=== PATIENT | male | born 1950 | race Asian ===

== ENCOUNTER 2017-06-19 06:47 | Day surgery (SDC) | payer BC ==
[2017-06-18 14:30] VITALS: BMI 39.9
[2017-06-19 09:17] VITALS: TEMP 97.7
[2017-06-19 10:02] VITALS: BP 107/77; PULSE 74
--- NOTE | 2017-06-22 16:43 | PATH ---
Surgical Pathology Report Patient Name: JACK ORTIZ [facility]. Rec. #: [id number] /Age/Gender: 1950 (Age: 67) / M Account: [id number] Location: U-ENDOSCOPY Taken: 06/19/2017 Received: 06/19/2017 Reported: 06/22/2017 Physicians: Linda Doe M.D. Specimen(s) Received A: BX DESCENDING COLON POLYP B: BX PROXIMAL TRANSVERSE COLON POLYP C: BX DISTAL TRANSVERSE COLON POLYP Clinical History Colon cancer screening Final Diagnosis A. COLON, DESCENDING, POLYP, BIOPSY: FRAGMENTS OF HYPERPLASTIC POLYP. B. COLON, PROXIMAL TRANSVERSE, POLYPS, BIOPSY: TUBULAR ADENOMA. ADDITIONAL POLYPOID FRAGMENTS OF COLONIC MUCOSA WITH REACTIVE LYMPHOID AGGREGATES AND SURFACE HYPERPLASTIC CHANGE. C. COLON, DISTAL TRANSVERSE, POLYP, BIOPSY: FRAGMENTS OF HYPERPLASTIC TYPE POLYP WITH FOCAL FEATURES OF SESSILE SERRATED ADENOMA. Electronically Signed Priyank Abreu M.D. Gross Description A. Received in formalin, labeled "biopsy descending colon polyp" are 3 steve, irregular portions of soft tissue ranging from 0.5-0.6 cm in greatest dimension. The specimens are submitted in toto in one cassette. B. Received in formalin, labeled "biopsy proximal transverse colon polyps" are 4 steve, irregular portions of soft tissue ranging from 0.1-1.0 cm in greatest dimension. The specimens are submitted in toto in one cassette. C. Received in formalin, labeled "biopsy distal transverse colon polyp" are 5 steve, irregular portions of soft tissue ranging from 0.1-0.6 cm in greatest dimension. The specimens are submitted in toto in one cassette. 06/19/201706/19/2017
== END 2017-06-19 10:07 | disposition home or self-care (01) ==
LOC: JASU-ENDO 06:47
PROVIDERS: ATTEND Internal Medicine Gastroenterology
PROC: 0DBL8ZX Excision of Transverse Colon, Via Natural or Artificial Opening Endoscopic, Diagnostic (ICD-10-PCS; 2017-06-19)
PROC: 0DBM8ZX Excision of Descending Colon, Via Natural or Artificial Opening Endoscopic, Diagnostic (ICD-10-PCS; principal; 2017-06-19 09:00)
DX: Z12.11 Encounter for screening for malignant neoplasm of colon (principal); D12.3 Benign neoplasm of transverse colon; K63.5 Polyp of colon; K57.30 Diverticulosis of large intestine without perforation or abscess without bleeding; K64.9 Unspecified hemorrhoids; E11.9 Type 2 diabetes mellitus without complications; E66.01 Morbid (severe) obesity due to excess calories; Z68.39 Body mass index [BMI] 39.0-39.9, adult; G47.30 Sleep apnea, unspecified; I51.7 Cardiomegaly
CPT/HCPCS: 88305-TC